=== PATIENT | female | born 1955 | race African-American/Black ===

== ENCOUNTER 2021-10-12 11:20 | Inpatient (IN) ==
[2021-10-12 11:51] LABS: Basophils % 0.4 % (0.0-0.8); Eosinophils # 0.1 10*3/uL (0.0-0.87); Eosinophils % 2.3 % (0.00-10.9); Hematocrit 39.8 VOL% (35.7-47.0); Hemoglobin 13.2 GM/DL (12.0-16.0); Immature Granulocytes % 0.2 %; Immature Granulocytes Absolute 0.01 #; Lymphocytes # 2.1 10*3/uL (1.4-4.0); Lymphocytes % 39.8 % (21.3-54.2); Mean Corpuscular HGB Conc 33.2 GM/DL (32-36); Mean Corpuscular Volume 91.9 FL (87-102); Mean Platelet Volume 10.3 FL (9.6-12.0); Monocytes # 0.5 10*3/uL (0.11-0.8); Monocytes % 8.5 % (1.7-12.7); Neutrophils % 48.8 % (38.7-73.9); Platelet Count 171 T/CUMM (130-400); Red Blood Count 4.33 MC/CUMM (3.8-5.5); Red Cell Distribution Width 14.3 % (9.3-17.3); White Blood Count 5.3 T/CUMM (4-12)
[2021-10-12 12:10] LABS: Alanine Aminotransferase 27 U/L (13-56); Albumin 3.5 G/DL (3.4-5.0); Alkaline Phosphatase 75 U/L (45-117); Aspartate Amino Transferase 19 U/L (0-37); Bilirubin,Total < 0.39 MG/DL (0.20-1.00); Blood Urea Nitrogen 10 MG/DL (7-18); Calcium 8.5 MG/DL (8.5-10.1); Carbon Dioxide 26 MMOL/L (21-32); Chloride 109 MMOL/L (98-107); Glucose 172 MG/DL (74-106); Osmolality,Calculated 283.3 MOS/KG (273-304); Potassium 3.4 MMOL/L (3.5-5.1); Sodium 141 MMOL/L (136-145); Total Protein 6.7 G/DL (6.4-8.2)
[2021-10-12 12:15] LABS: Eosinophils 3 % (0-10); Lymphocytes 38 % (20-55); Total Cells Counted 100
[2021-10-12 12:16] LABS: Platelet Estimate Adequate
[2021-10-12] MEDS ORDERED: ASPIRIN 325 MG TABLET PO STA (12:34)
[2021-10-12] MEDS ORDERED: NITROGLYCERIN SL 0.4 MG TABLET SL PRN (12:34)
[2021-10-12] MEDS ORDERED: ENOXAPARIN 100 MG/ML SYRINGE SUBCUT STA (12:34)
[2021-10-12] MEDS ORDERED: ACETAMINOPHEN 325 MG TABLET PO PRN (14:11)
[2021-10-12] MEDS ORDERED: NICOTINE 21 MG/24 HR PATCH TRANSDERM PRN (14:11)
[2021-10-12] MEDS ORDERED: ONDANSETRON 4 MG/2 ML VIAL IV PRN (14:11)
[2021-10-12] MEDS ORDERED: GLUCAGON 1 MG VIAL IM PRN (14:11)
[2021-10-12] MEDS ORDERED: POTASSIUM CHLORIDE 20 MEQ TABLET PO PRN (14:15)
[2021-10-12] MEDS ORDERED: MAGNESIUM SULF RIDER 2 GM/50 ML PREMIX IV PRN (14:15)
[2021-10-12] MEDS ORDERED: MAGNESIUM SULF RIDER 4 GM/100 ML PREMIX IV PRN (14:15)
[2021-10-12] MEDS ORDERED: DEXTROSE 10% 250 ML BAG IV PRN (14:20)
[2021-10-12] MEDS: INSULIN LISPRO 100 UNIT/ML SUBCUT SCH ×2 (16:52→20:27)
[2021-10-12 17:29] LABS: Alanine Aminotransferase 30 U/L (13-56); Albumin 3.7 G/DL (3.4-5.0); Alkaline Phosphatase 80 U/L (45-117); Aspartate Amino Transferase 46 U/L (0-37); Bilirubin,Total < 0.39 MG/DL (0.20-1.00); Blood Urea Nitrogen 8 MG/DL (7-18); Calcium 8.8 MG/DL (8.5-10.1); Carbon Dioxide 26 MMOL/L (21-32); Chloride 107 MMOL/L (98-107); Glucose 127 MG/DL (74-106); Osmolality,Calculated 278.4 MOS/KG (273-304); Potassium 3.4 MMOL/L (3.5-5.1); Sodium 140 MMOL/L (136-145)
[2021-10-12] MEDS: AMITRIPTYLINE 50 MG TABLET PO SCH (20:26)
[2021-10-12] MEDS: PREGABALIN 75 MG CAPSULE PO SCH (20:26)
[2021-10-12] MEDS: METOPROLOL TARTRATE 100 MG TABLET PO SCH (20:26)
[2021-10-12] MEDS ORDERED: TICAGRELOR 90 MG TABLET PO ONE (20:58)
[2021-10-12] MEDS ORDERED: ROSUVASTATIN 20 MG TABLET PO SCH (21:00)
[2021-10-12] MEDS ORDERED: HEPARIN 5,000 UNIT/1 ML VIAL IV ONE (21:53)
[2021-10-12] MEDS ORDERED: HEPARIN DRIP 25,000 UNITS/500 ML PREMIX IV SCH (22:00)
[2021-10-13] MEDS ORDERED: MORPHINE 2 MG/1 ML SYRINGE IV PRN (00:20)
[2021-10-13] MEDS: NITROGLYCERIN 2% OINT 1 INCH/GM PACK TOP SCH ×4 (00:34→17:48)
[2021-10-13 05:27] LABS: Basophils % 0.2 % (0.0-0.8); Hematocrit 40.9 VOL% (35.7-47.0); Hemoglobin 13.9 GM/DL (12.0-16.0); Immature Granulocytes % 0.6 %; Immature Granulocytes Absolute 0.06 #; Lymphocytes # 1.7 10*3/uL (1.4-4.0); Lymphocytes % 17.2 % (21.3-54.2); Mean Corpuscular Volume 88.5 FL (87-102); Mean Platelet Volume 11.3 FL (9.6-12.0); Monocytes # 0.6 10*3/uL (0.11-0.8); Monocytes % 6.5 % (1.7-12.7); Neutrophils % 75.5 % (38.7-73.9); Platelet Count 217 T/CUMM (130-400); Red Blood Count 4.62 MC/CUMM (3.8-5.5); White Blood Count 9.6 T/CUMM (4-12)
[2021-10-13 05:44] LABS: Osmolality,Calculated 278.7 MOS/KG (273-304); Risk Ratio 3.44; VLDL Cholesterol 16.8 MG/DL
[2021-10-13] MEDS ORDERED: diphenhydrAMINE CAP 25 MG CAPSULE PO ONE (07:55)
[2021-10-13] MEDS ORDERED: DIAZEPAM 5 MG TABLET PO ONE (07:55)
[2021-10-13] MEDS ORDERED: POTASSIUM CHLORIDE 20 MEQ TABLET PO ONE (08:10)
[2021-10-13] MEDS ORDERED: MAGNESIUM SULF RIDER 2 GM/50 ML PREMIX IV ONE (08:11)
[2021-10-13] MEDS ORDERED: NITROGLYCERIN DRIP 50 MG/250 ML BOTTLE IV PRN (08:43)
[2021-10-13] MEDS ORDERED: HEPARIN/NACL 0.9% 2 UNITS/ML 2,000 UNIT/1,000 ML BAG IV ONE (09:00)
[2021-10-13] MEDS ORDERED: ASPIRIN EC 325 MG TABLET PO SCH (09:00)
[2021-10-13] MEDS ORDERED: PANTOPRAZOLE 40 MG TABLET PO SCH (09:00)
[2021-10-13] MEDS ORDERED: HYDROmorphone 1 MG/1 ML SYRINGE ONE ×2 (09:21→09:49)
[2021-10-13] MEDS ORDERED: MIDAZOLAM 2 MG/2 ML VIAL ONE ×2 (09:22→09:50)
[2021-10-13] MEDS ORDERED: NITROGLYCERIN DRIP 50 MG/250 ML BOTTLE IV ONE (09:26)
[2021-10-13] MEDS ORDERED: VERAPAMIL 5 MG/2 ML VIAL ONE (09:26)
[2021-10-13] MEDS ORDERED: ENOXAPARIN 30 MG/0.3 ML SYRINGE ONE (09:41)
[2021-10-13] MEDS: INSULIN LISPRO 100 UNIT/ML SUBCUT SCH ×4 (09:57→20:08)
[2021-10-13] MEDS ORDERED: HEPARIN/NACL 0.9% 2 UNITS/ML 1,000 UNIT/500 ML BAG IV ONE (10:01)
[2021-10-13] MEDS ORDERED: TIROFIBAN 5,000 MCG/100 ML PREMIX IV ONE (10:39)
[2021-10-13] MEDS ORDERED: TICAGRELOR 90 MG TABLET ONE (10:48)
[2021-10-13] MEDS ORDERED: TIROFIBAN 5,000 MCG/100 ML PREMIX IV SCH (11:00)
[2021-10-13] MEDS ORDERED: ENOXAPARIN 40 MG/0.4 ML SYRINGE SUBCUT SCH (13:00)
[2021-10-13] MEDS: SPIRONOLACTONE 25 MG TABLET PO SCH (13:32)
[2021-10-13] MEDS: METOPROLOL TARTRATE 100 MG TABLET PO SCH ×2 (13:32→20:44)
[2021-10-13] MEDS: PREGABALIN 75 MG CAPSULE PO SCH ×3 (13:32→20:44)
[2021-10-13] MEDS: amLODIPine 10 MG TABLET PO SCH (13:33)
[2021-10-13] MEDS: SODIUM CHLORIDE 0.45% 1,000 ML IV SCH ×3 (17:03→23:36)
[2021-10-13] MEDS: AMITRIPTYLINE 50 MG TABLET PO SCH (20:44)
[2021-10-13] MEDS: ROSUVASTATIN 20 MG TABLET PO SCH (20:44)
[2021-10-13] MEDS: TICAGRELOR 90 MG TABLET PO SCH (20:44)
[2021-10-14] MEDS: NITROGLYCERIN 2% OINT 1 INCH/GM PACK TOP SCH ×2 (00:09→06:05)
[2021-10-14 03:52] LABS: Basophils % 0.2 % (0.0-0.8); Eosinophils % 0.3 % (0.00-10.9); Hematocrit 37.8 VOL% (35.7-47.0); Hemoglobin 13.1 GM/DL (12.0-16.0); Immature Granulocytes % 0.2 %; Immature Granulocytes Absolute 0.02 #; Lymphocytes # 2.2 10*3/uL (1.4-4.0); Lymphocytes % 22.3 % (21.3-54.2); Mean Corpuscular HGB Conc 34.7 GM/DL (32-36); Mean Corpuscular Volume 89.4 FL (87-102); Mean Platelet Volume 10.9 FL (9.6-12.0); Monocytes % 10.2 % (1.7-12.7); Neutrophils % 66.8 % (38.7-73.9); Platelet Count 188 T/CUMM (130-400); Red Blood Count 4.23 MC/CUMM (3.8-5.5); Red Cell Distribution Width 14.1 % (9.3-17.3); White Blood Count 9.8 T/CUMM (4-12)
[2021-10-14 04:09] LABS: Calcium 9.1 MG/DL (8.5-10.1); Osmolality,Calculated 278.5 MOS/KG (273-304); Potassium 3.5 MMOL/L (3.5-5.1)
[2021-10-14] MEDS: SODIUM CHLORIDE 0.45% 1,000 ML IV SCH ×2 (07:40→18:53)
[2021-10-14] MEDS: INSULIN LISPRO 100 UNIT/ML SUBCUT SCH ×4 (08:31→20:31)
[2021-10-14] MEDS: METOPROLOL TARTRATE 100 MG TABLET PO SCH ×2 (08:43→20:31)
[2021-10-14] MEDS: TICAGRELOR 90 MG TABLET PO SCH ×2 (08:43→20:29)
[2021-10-14] MEDS: PREGABALIN 75 MG CAPSULE PO SCH ×3 (08:43→20:29)
[2021-10-14] MEDS: amLODIPine 10 MG TABLET PO SCH (08:43)
[2021-10-14] MEDS: ASPIRIN EC 81 MG TABLET PO SCH (08:43)
[2021-10-14] MEDS: SPIRONOLACTONE 25 MG TABLET PO SCH (08:43)
[2021-10-14] MEDS: NICOTINE 21 MG/24 HR PATCH TRANSDERM SCH (14:52)
[2021-10-14] MEDS: oxyCODONE/ACETAMINOPHEN 5-325 MG TABLET PO PRN (18:45)
[2021-10-14] MEDS: ROSUVASTATIN 20 MG TABLET PO SCH (20:29)
[2021-10-14] MEDS ORDERED: NORTRIPTYLINE 25 MG CAPSULE PO SCH (21:00)
[2021-10-15] MEDS: SODIUM CHLORIDE 0.45% 1,000 ML IV SCH (01:18)
[2021-10-15 04:37] LABS: Basophils % 0.2 % (0.0-0.8); Eosinophils # 0.1 10*3/uL (0.0-0.87); Eosinophils % 1.3 % (0.00-10.9); Hematocrit 38.5 VOL% (35.7-47.0); Hemoglobin 12.8 GM/DL (12.0-16.0); Immature Granulocytes % 0.2 %; Immature Granulocytes Absolute 0.02 #; Lymphocytes # 3.1 10*3/uL (1.4-4.0); Mean Corpuscular HGB Conc 33.2 GM/DL (32-36); Mean Corpuscular Volume 90.4 FL (87-102); Monocytes # 0.8 10*3/uL (0.11-0.8); Monocytes % 10.1 % (1.7-12.7); Neutrophils % 50.2 % (38.7-73.9); Platelet Count 159 T/CUMM (130-400); Red Blood Count 4.26 MC/CUMM (3.8-5.5); Red Cell Distribution Width 14.2 % (9.3-17.3); White Blood Count 8.2 T/CUMM (4-12)
[2021-10-15 04:58] LABS: Calcium 8.9 MG/DL (8.5-10.1); Osmolality,Calculated 285.3 MOS/KG (273-304)
[2021-10-15] MEDS: INSULIN LISPRO 100 UNIT/ML SUBCUT SCH (07:14)
[2021-10-15] MEDS ORDERED: POTASSIUM CHLORIDE 20 MEQ TABLET PO ONE (09:07)
[2021-10-15] MEDS: amLODIPine 10 MG TABLET PO SCH (09:09)
[2021-10-15] MEDS ORDERED: POTASSIUM CHLORIDE 20 MEQ TABLET PO SCH (10:00)
[2021-10-15] MEDS: TICAGRELOR 90 MG TABLET PO SCH (10:15)
[2021-10-15] MEDS: PREGABALIN 75 MG CAPSULE PO SCH (10:16)
[2021-10-15] MEDS: ASPIRIN EC 81 MG TABLET PO SCH (10:16)
[2021-10-15] MEDS: METOPROLOL TARTRATE 100 MG TABLET PO SCH (10:16)
[2021-10-15] MEDS: SPIRONOLACTONE 25 MG TABLET PO SCH (10:18)
[2021-10-15] MEDS: NICOTINE 21 MG/24 HR PATCH TRANSDERM SCH (10:18)
[2021-10-15] MEDS: oxyCODONE/ACETAMINOPHEN 5-325 MG TABLET PO PRN (10:29)
[2021-10-15 11:14] VITALS: BP 99/68
== END 2021-10-15 13:11 | disposition home or self-care (01) | DRG 174 ==
LOC: N.ED 11:20 → N.TELEN 11:20 → SUATTDRO 10-13 09:38
PROVIDERS: ADMIT Internal Medicine; ATTEND Hospitalist
PROC: CLCCHCL (ICD-10-PCS; 2021-10-13 09:45)

== ENCOUNTER 2021-10-30 12:40 | Inpatient (IN) ==
[2021-10-30] MEDS ORDERED: ASPIRIN 325 MG TABLET PO STA (13:07)
[2021-10-30] MEDS ORDERED: MORPHINE 2 MG/1 ML SYRINGE IV STA (13:17)
[2021-10-30] MEDS ORDERED: FUROSEMIDE 40 MG/4 ML VIAL IV STA (13:17)
[2021-10-30] MEDS ORDERED: NITROGLYCERIN 2% OINT 1 INCH/GM PACK TOP STA (13:18)
[2021-10-30] MEDS ORDERED: NITROGLYCERIN SL 0.4 MG TABLET SL PRN (13:18)
[2021-10-30 13:55] LABS: Basophils % 0.1 % (0.0-0.8); Eosinophils # 0.1 10*3/uL (0.0-0.87); Eosinophils % 0.8 % (0.00-10.9); Hematocrit 34.9 VOL% (35.7-47.0); Hemoglobin 11.6 GM/DL (12.0-16.0); Immature Granulocytes % 0.3 %; Immature Granulocytes Absolute 0.03 #; Lymphocytes # 1.5 10*3/uL (1.4-4.0); Lymphocytes % 16.2 % (21.3-54.2); Mean Corpuscular HGB Conc 33.2 GM/DL (32-36); Mean Corpuscular Volume 92.1 FL (87-102); Mean Platelet Volume 10.1 FL (9.6-12.0); Monocytes # 0.5 10*3/uL (0.11-0.8); Monocytes % 5.5 % (1.7-12.7); Neutrophils % 77.1 % (38.7-73.9); Platelet Count 320 T/CUMM (130-400); Red Blood Count 3.79 MC/CUMM (3.8-5.5); Red Cell Distribution Width 13.7 % (9.3-17.3); White Blood Count 8.9 T/CUMM (4-12)
[2021-10-30 14:08] LABS: Albumin 3.5 G/DL (3.4-5.0); Bilirubin,Total 0.5 MG/DL (0.20-1.00); Calcium 8.7 MG/DL (8.5-10.1); Total Protein 6.9 G/DL (6.4-8.2)
[2021-10-30] MEDS ORDERED: DOCUSATE SODIUM 100 MG CAPSULE PO PRN (15:22)
[2021-10-30] MEDS ORDERED: hydrALAZINE 20 MG/1 ML VIAL IV PRN (15:22)
[2021-10-30] MEDS ORDERED: SIMETHICONE CHEW 125 MG TABLET PO PRN (15:22)
[2021-10-30] MEDS ORDERED: LACTULOSE 20 GM/30 ML UDCUP PO PRN (15:22)
[2021-10-30] MEDS ORDERED: GLUCAGON 1 MG VIAL IM PRN (15:22)
[2021-10-30] MEDS ORDERED: ONDANSETRON 4 MG/2 ML VIAL IV PRN (15:22)
[2021-10-30] MEDS ORDERED: DEXTROSE 10% 250 ML BAG IV PRN (15:32)
[2021-10-30] MEDS ORDERED: MAGNESIUM SULF RIDER 4 GM/100 ML PREMIX IV PRN (16:16)
[2021-10-30] MEDS ORDERED: MAGNESIUM SULF RIDER 2 GM/50 ML PREMIX IV PRN (16:16)
[2021-10-30] MEDS: ACETAMINOPHEN 325 MG TABLET PO PRN (17:54)
[2021-10-30] MEDS: ALBUTEROL/IPRATROPIUM 3 ML NEB RESP TX SCH ×2 (18:50→23:47)
[2021-10-30] MEDS ORDERED: FUROSEMIDE 40 MG/4 ML VIAL IV SCH (21:00)
[2021-10-30] MEDS: PREGABALIN 75 MG CAPSULE PO SCH (21:42)
[2021-10-30] MEDS: TICAGRELOR 90 MG TABLET PO SCH (21:42)
[2021-10-30] MEDS: ENOXAPARIN 40 MG/0.4 ML SYRINGE SUBCUT SCH (21:42)
[2021-10-30] MEDS: METOPROLOL TARTRATE 100 MG TABLET PO SCH (21:42)
[2021-10-30] MEDS: oxyCODONE/ACETAMINOPHEN 5-325 MG TABLET PO PRN (21:43)
[2021-10-30] MEDS: NORTRIPTYLINE 25 MG CAPSULE PO SCH (21:43)
[2021-10-30] MEDS: ROSUVASTATIN 20 MG TABLET PO SCH (21:44)
[2021-10-31] MEDS: ALBUTEROL/IPRATROPIUM 3 ML NEB RESP TX SCH ×6 (03:50→23:36)
[2021-10-31 05:22] LABS: Basophils % 0.4 % (0.0-0.8); Eosinophils # 0.1 10*3/uL (0.0-0.87); Eosinophils % 1.3 % (0.00-10.9); Hematocrit 32.1 VOL% (35.7-47.0); Hemoglobin 10.7 GM/DL (12.0-16.0); Immature Granulocytes % 0.3 %; Immature Granulocytes Absolute 0.02 #; Lymphocytes # 2.3 10*3/uL (1.4-4.0); Lymphocytes % 34.2 % (21.3-54.2); Mean Corpuscular HGB Conc 33.3 GM/DL (32-36); Mean Corpuscular Volume 91.2 FL (87-102); Mean Platelet Volume 10.4 FL (9.6-12.0); Monocytes # 0.6 10*3/uL (0.11-0.8); Neutrophils % 54.8 % (38.7-73.9); Platelet Count 252 T/CUMM (130-400); Red Blood Count 3.52 MC/CUMM (3.8-5.5); Red Cell Distribution Width 13.9 % (9.3-17.3); White Blood Count 6.7 T/CUMM (4-12)
[2021-10-31 05:42] LABS: Alanine Aminotransferase 20 U/L (13-56); Albumin 3.1 G/DL (3.4-5.0); Alkaline Phosphatase 74 U/L (45-117); Aspartate Amino Transferase 13 U/L (0-37); Bilirubin,Total < 0.39 MG/DL (0.20-1.00); Blood Urea Nitrogen 14 MG/DL (7-18); Calcium 8.9 MG/DL (8.5-10.1); Carbon Dioxide 24 MMOL/L (21-32); Chloride 111 MMOL/L (98-107); Glucose 96 MG/DL (74-106); Osmolality,Calculated 283.1 MOS/KG (273-304); Potassium 3.6 MMOL/L (3.5-5.1); Sodium 142 MMOL/L (136-145); Total Protein 6.8 G/DL (6.4-8.2)
[2021-10-31] MEDS: FUROSEMIDE 40 MG/4 ML VIAL IV SCH ×2 (06:43→18:44)
[2021-10-31] MEDS: SPIRONOLACTONE 25 MG TABLET PO SCH (09:23)
[2021-10-31] MEDS: ESCITALOPRAM 10 MG TABLET PO SCH (09:23)
[2021-10-31] MEDS: TICAGRELOR 90 MG TABLET PO SCH ×2 (09:23→21:28)
[2021-10-31] MEDS: ASPIRIN EC 81 MG TABLET PO SCH (09:23)
[2021-10-31] MEDS: LOSARTAN 25 MG TABLET PO SCH (09:23)
[2021-10-31] MEDS: PANTOPRAZOLE 40 MG TABLET PO SCH (09:23)
[2021-10-31] MEDS: PREGABALIN 75 MG CAPSULE PO SCH ×3 (09:24→21:29)
[2021-10-31] MEDS: METOPROLOL TARTRATE 100 MG TABLET PO SCH ×2 (09:24→21:29)
[2021-10-31] MEDS: NICOTINE 21 MG/24 HR PATCH TRANSDERM SCH (09:24)
[2021-10-31] MEDS: ACETAMINOPHEN 325 MG TABLET PO PRN (18:49)
[2021-10-31] MEDS: ENOXAPARIN 40 MG/0.4 ML SYRINGE SUBCUT SCH (21:28)
[2021-10-31] MEDS: oxyCODONE/ACETAMINOPHEN 5-325 MG TABLET PO PRN (21:29)
[2021-10-31] MEDS: ROSUVASTATIN 20 MG TABLET PO SCH (21:29)
[2021-10-31] MEDS: NORTRIPTYLINE 25 MG CAPSULE PO SCH (22:36)
[2021-11-01] MEDS: ALBUTEROL/IPRATROPIUM 3 ML NEB RESP TX SCH ×5 (03:50→20:06)
[2021-11-01 04:45] LABS: Basophils % 0.3 % (0.0-0.8); Eosinophils # 0.1 10*3/uL (0.0-0.87); Eosinophils % 1.7 % (0.00-10.9); Hematocrit 33.8 VOL% (35.7-47.0); Immature Granulocytes % 0.4 %; Immature Granulocytes Absolute 0.03 #; Lymphocytes # 2.5 10*3/uL (1.4-4.0); Mean Corpuscular HGB Conc 32.5 GM/DL (32-36); Mean Corpuscular Volume 92.6 FL (87-102); Mean Platelet Volume 10.4 FL (9.6-12.0); Monocytes # 0.6 10*3/uL (0.11-0.8); Monocytes % 7.5 % (1.7-12.7); Neutrophils % 58.1 % (38.7-73.9); Platelet Count 291 T/CUMM (130-400); Red Blood Count 3.65 MC/CUMM (3.8-5.5); Red Cell Distribution Width 13.9 % (9.3-17.3); White Blood Count 7.7 T/CUMM (4-12)
[2021-11-01 05:18] LABS: Calcium 8.9 MG/DL (8.5-10.1); Osmolality,Calculated 287.3 MOS/KG (273-304); Potassium 3.5 MMOL/L (3.5-5.1)
[2021-11-01] MEDS: FUROSEMIDE 40 MG/4 ML VIAL IV SCH (06:34)
[2021-11-01] MEDS: METOPROLOL TARTRATE 100 MG TABLET PO SCH ×2 (10:14→22:05)
[2021-11-01] MEDS: ESCITALOPRAM 10 MG TABLET PO SCH (10:14)
[2021-11-01] MEDS: ASPIRIN EC 81 MG TABLET PO SCH (10:14)
[2021-11-01] MEDS: TICAGRELOR 90 MG TABLET PO SCH (10:14)
[2021-11-01] MEDS: SPIRONOLACTONE 25 MG TABLET PO SCH (10:15)
[2021-11-01] MEDS: PREGABALIN 75 MG CAPSULE PO SCH ×3 (10:15→22:06)
[2021-11-01] MEDS: PANTOPRAZOLE 40 MG TABLET PO SCH (10:15)
[2021-11-01] MEDS: LOSARTAN 25 MG TABLET PO SCH (10:15)
[2021-11-01] MEDS: NICOTINE 21 MG/24 HR PATCH TRANSDERM SCH (10:15)
[2021-11-01] MEDS ORDERED: SODIUM CHLORIDE 0.9% 1,000 ML IV SCH (11:00)
[2021-11-01] MEDS ORDERED: CLOPIDOGREL 75 MG TABLET PO ONE (21:00)
[2021-11-01] MEDS: NORTRIPTYLINE 25 MG CAPSULE PO SCH (22:05)
[2021-11-01] MEDS: ROSUVASTATIN 20 MG TABLET PO SCH (22:05)
[2021-11-01] MEDS: ENOXAPARIN 40 MG/0.4 ML SYRINGE SUBCUT SCH (22:06)
[2021-11-01] MEDS: oxyCODONE/ACETAMINOPHEN 5-325 MG TABLET PO PRN (22:20)
[2021-11-02] MEDS: ALBUTEROL/IPRATROPIUM 3 ML NEB RESP TX SCH ×4 (01:01→10:33)
[2021-11-02 04:37] LABS: Basophils % 0.4 % (0.0-0.8); Eosinophils # 0.2 10*3/uL (0.0-0.87); Eosinophils % 2.7 % (0.00-10.9); Hematocrit 33.2 VOL% (35.7-47.0); Hemoglobin 10.5 GM/DL (12.0-16.0); Immature Granulocytes % 0.1 %; Immature Granulocytes Absolute 0.01 #; Lymphocytes # 2.4 10*3/uL (1.4-4.0); Lymphocytes % 32.6 % (21.3-54.2); Mean Corpuscular HGB Conc 31.6 GM/DL (32-36); Mean Platelet Volume 10.2 FL (9.6-12.0); Monocytes # 0.5 10*3/uL (0.11-0.8); Monocytes % 7.2 % (1.7-12.7); Platelet Count 282 T/CUMM (130-400); Red Blood Count 3.57 MC/CUMM (3.8-5.5); White Blood Count 7.5 T/CUMM (4-12)
[2021-11-02 05:02] LABS: Calcium 8.8 MG/DL (8.5-10.1); Osmolality,Calculated 285.3 MOS/KG (273-304); Potassium 3.3 MMOL/L (3.5-5.1)
[2021-11-02 08:10] VITALS: BP 106/86
[2021-11-02] MEDS ORDERED: CLOPIDOGREL 75 MG TABLET PO SCH (09:00)
[2021-11-02] MEDS: METOPROLOL TARTRATE 100 MG TABLET PO SCH (09:49)
[2021-11-02] MEDS: PANTOPRAZOLE 40 MG TABLET PO SCH (09:49)
[2021-11-02] MEDS: ESCITALOPRAM 10 MG TABLET PO SCH (09:49)
[2021-11-02] MEDS: PREGABALIN 75 MG CAPSULE PO SCH (09:50)
[2021-11-02] MEDS: ASPIRIN EC 81 MG TABLET PO SCH (09:50)
[2021-11-02] MEDS: NICOTINE 21 MG/24 HR PATCH TRANSDERM SCH (09:51)
[2021-11-02] MEDS ORDERED: POTASSIUM CHLORIDE 20 MEQ TABLET PO ONE (10:04)
== END 2021-11-02 13:03 | disposition home or self-care (01) | DRG 190 ==
LOC: N.ED 12:40 → N.EDINP 12:40 → SUATTDRO 15:22 → N.TELEN 16:09 → SUATTDRO 11-01 11:53
PROVIDERS: ADMIT Internal Medicine; ATTEND Emergency Medicine

== ENCOUNTER 2021-11-25 08:00 | Inpatient (IN) ==
[2021-11-25 08:33] LABS: Basophils % 0.4 % (0.0-0.8); Eosinophils # 0.2 10*3/uL (0.0-0.87); Eosinophils % 2.7 % (0.00-10.9); Hematocrit 34.3 VOL% (35.7-47.0); Hemoglobin 10.4 GM/DL (12.0-16.0); Immature Granulocytes % 0.3 %; Immature Granulocytes Absolute 0.02 #; Lymphocytes # 2.2 10*3/uL (1.4-4.0); Lymphocytes % 32.7 % (21.3-54.2); Mean Corpuscular HGB Conc 30.3 GM/DL (32-36); Mean Platelet Volume 9.8 FL (9.6-12.0); Monocytes # 0.4 10*3/uL (0.11-0.8); Monocytes % 6.2 % (1.7-12.7); Neutrophils % 57.7 % (38.7-73.9); Platelet Count 214 T/CUMM (130-400); White Blood Count 6.8 T/CUMM (4-12)
[2021-11-25] MEDS ORDERED: ALBUTEROL/IPRATROPIUM 3 ML NEB RESP TX STA (08:39)
[2021-11-25 08:56] LABS: Alanine Aminotransferase 56 U/L (13-56); Albumin 3.2 G/DL (3.4-5.0); Alkaline Phosphatase 104 U/L (45-117); Aspartate Amino Transferase 30 U/L (0-37); Bilirubin,Total < 0.39 MG/DL (0.20-1.00); Blood Urea Nitrogen 21 MG/DL (7-18); Calcium 8.9 MG/DL (8.5-10.1); Carbon Dioxide 26 MMOL/L (21-32); Chloride 110 MMOL/L (98-107); Glucose 165 MG/DL (74-106); Osmolality,Calculated 287.3 MOS/KG (273-304); Potassium 4.5 MMOL/L (3.5-5.1); Sodium 141 MMOL/L (136-145); Total Protein 7.1 G/DL (6.4-8.2)
[2021-11-25 09:02] LABS: Eosinophils 3 % (0-10); Lymphocytes 40 % (20-55); Platelet Estimate Adequate; Total Cells Counted 100
[2021-11-25 09:08] LABS: Arterial Base Excess iSTAT -1 MMOL/L (-2.5-2.5); Arterial Bicarbonate iSTAT 24.5 MMOL/L (20-26); Arterial O2 Saturation iSTAT 92 % (95-100); Arterial PCO2 iSTAT 41 MM HG (35-48); Arterial PO2 iSTAT 66 MM HG (80-95); Arterial Total CO2 iSTAT 26 MMO/L (23-27); Arterial pH iSTAT 7.382 (7.35-7.45)
[2021-11-25 09:09] LABS: INR 0.9; PT Patient Result 10.3 SECS (10.5-12.0); Partial Thromboplastin Time 23.9 SECS (23.7-32.9)
[2021-11-25] MEDS ORDERED: ASPIRIN EC 325 MG TABLET PO STA (10:54)
[2021-11-25] MEDS ORDERED: GLUCAGON 1 MG VIAL IM PRN (11:30)
[2021-11-25] MEDS ORDERED: ACETAMINOPHEN 325 MG TABLET PO PRN (11:30)
[2021-11-25] MEDS ORDERED: ONDANSETRON 4 MG/2 ML VIAL IV PRN (11:30)
[2021-11-25] MEDS ORDERED: ALUMINUM/MAGNES/SIMETH MAX STR 30 ML UDCUP PO PRN (11:30)
[2021-11-25] MEDS ORDERED: hydrALAZINE 20 MG/1 ML VIAL IV PRN (11:30)
[2021-11-25] MEDS ORDERED: DOCUSATE SODIUM 100 MG CAPSULE PO PRN (11:30)
[2021-11-25] MEDS ORDERED: ALBUTEROL/IPRATROPIUM 3 ML NEB RESP TX PRN (11:30)
[2021-11-25] MEDS ORDERED: FUROSEMIDE 40 MG/4 ML VIAL IV SCH (11:35)
[2021-11-25] MEDS ORDERED: DEXTROSE 10% 250 ML BAG IV PRN (12:01)
[2021-11-25] MEDS ORDERED: NITROGLYCERIN SL 0.4 MG TABLET SL PRN (12:58)
[2021-11-25] MEDS: ENOXAPARIN 40 MG/0.4 ML SYRINGE SUBCUT SCH (13:42)
[2021-11-25] MEDS ORDERED: LOSARTAN 25 MG TABLET PO SCH (14:30)
[2021-11-25] MEDS: INSULIN LISPRO 100 UNIT/ML SUBCUT SCH ×3 (15:10→21:08)
[2021-11-25] MEDS: SPIRONOLACTONE 25 MG TABLET PO SCH (15:12)
[2021-11-25] MEDS: PREGABALIN 75 MG CAPSULE PO SCH ×2 (15:12→21:08)
[2021-11-25] MEDS: FUROSEMIDE 40 MG/4 ML VIAL IV SCH (16:41)
[2021-11-25] MEDS: ROSUVASTATIN 20 MG TABLET PO SCH (21:07)
[2021-11-25] MEDS: METOPROLOL TARTRATE 100 MG TABLET PO SCH (21:07)
[2021-11-25] MEDS: NORTRIPTYLINE 25 MG CAPSULE PO SCH (21:07)
[2021-11-26 04:48] LABS: Basophils % 0.3 % (0.0-0.8); Eosinophils # 0.2 10*3/uL (0.0-0.87); Eosinophils % 2.5 % (0.00-10.9); Hematocrit 33.6 VOL% (35.7-47.0); Hemoglobin 10.8 GM/DL (12.0-16.0); Immature Granulocytes % 0.2 %; Immature Granulocytes Absolute 0.01 #; Lymphocytes # 1.6 10*3/uL (1.4-4.0); Lymphocytes % 27.5 % (21.3-54.2); Mean Corpuscular HGB Conc 32.1 GM/DL (32-36); Mean Corpuscular Volume 93.6 FL (87-102); Mean Platelet Volume 9.9 FL (9.6-12.0); Monocytes # 0.5 10*3/uL (0.11-0.8); Monocytes % 7.6 % (1.7-12.7); Neutrophils % 61.9 % (38.7-73.9); Platelet Count 211 T/CUMM (130-400); Red Blood Count 3.59 MC/CUMM (3.8-5.5); Red Cell Distribution Width 15.6 % (9.3-17.3)
[2021-11-26 05:17] LABS: Albumin 3.4 G/DL (3.4-5.0); Bilirubin,Total 0.5 MG/DL (0.20-1.00); Calcium 9.2 MG/DL (8.5-10.1); Osmolality,Calculated 278.7 MOS/KG (273-304); Potassium 3.7 MMOL/L (3.5-5.1); Thyroid Stimulating Hormone 0.472 uIU/ml (0.358-3.74); Total Protein 7.2 G/DL (6.4-8.2)
[2021-11-26] MEDS: INSULIN LISPRO 100 UNIT/ML SUBCUT SCH ×4 (08:54→21:13)
[2021-11-26] MEDS: FUROSEMIDE 40 MG/4 ML VIAL IV SCH ×2 (08:55→15:42)
[2021-11-26] MEDS: ASPIRIN EC 81 MG TABLET PO SCH (08:55)
[2021-11-26] MEDS: PREGABALIN 75 MG CAPSULE PO SCH ×3 (08:56→21:12)
[2021-11-26] MEDS: CLOPIDOGREL 75 MG TABLET PO SCH (08:56)
[2021-11-26] MEDS: SPIRONOLACTONE 25 MG TABLET PO SCH (08:56)
[2021-11-26] MEDS: METOPROLOL TARTRATE 100 MG TABLET PO SCH ×2 (08:56→21:12)
[2021-11-26] MEDS: ESCITALOPRAM 10 MG TABLET PO SCH (08:56)
[2021-11-26] MEDS: PANTOPRAZOLE 40 MG TABLET PO SCH (08:56)
[2021-11-26] MEDS: VALSARTAN 80 MG TABLET PO SCH (09:01)
[2021-11-26] MEDS: ENOXAPARIN 40 MG/0.4 ML SYRINGE SUBCUT SCH (13:29)
[2021-11-26] MEDS: oxyCODONE/ACETAMINOPHEN 5-325 MG TABLET PO PRN (15:57)
[2021-11-26] MEDS: ROSUVASTATIN 20 MG TABLET PO SCH (21:12)
[2021-11-26] MEDS: NORTRIPTYLINE 25 MG CAPSULE PO SCH (21:13)
[2021-11-27 05:23] LABS: Basophils % 0.3 % (0.0-0.8); Eosinophils # 0.2 10*3/uL (0.0-0.87); Eosinophils % 2.4 % (0.00-10.9); Hematocrit 35.1 VOL% (35.7-47.0); Hemoglobin 11.1 GM/DL (12.0-16.0); Immature Granulocytes % 0.6 %; Immature Granulocytes Absolute 0.04 #; Lymphocytes # 1.8 10*3/uL (1.4-4.0); Mean Corpuscular HGB Conc 31.6 GM/DL (32-36); Mean Corpuscular Volume 95.6 FL (87-102); Mean Platelet Volume 9.9 FL (9.6-12.0); Monocytes # 0.7 10*3/uL (0.11-0.8); Monocytes % 10.4 % (1.7-12.7); Neutrophils % 57.3 % (38.7-73.9); Platelet Count 238 T/CUMM (130-400); Red Blood Count 3.67 MC/CUMM (3.8-5.5); Red Cell Distribution Width 15.6 % (9.3-17.3); White Blood Count 6.2 T/CUMM (4-12)
[2021-11-27 05:33] LABS: Calcium 8.8 MG/DL (8.5-10.1); Osmolality,Calculated 288.4 MOS/KG (273-304); Potassium 3.4 MMOL/L (3.5-5.1)
[2021-11-27 06:41] LABS: Eosinophils 1 % (0-10); Lymphocytes 24 % (20-55); Total Cells Counted 100
[2021-11-27 06:42] LABS: Platelet Estimate Normal
[2021-11-27 06:43] LABS: Polychromasia Slight; Target Cells Slight
[2021-11-27] MEDS ORDERED: POTASSIUM CHLORIDE 20 MEQ TABLET PO ONE ×2 (08:22→11:21)
[2021-11-27] MEDS: PANTOPRAZOLE 40 MG TABLET PO SCH (08:28)
[2021-11-27] MEDS: CLOPIDOGREL 75 MG TABLET PO SCH (08:28)
[2021-11-27] MEDS: PREGABALIN 75 MG CAPSULE PO SCH ×3 (08:28→21:41)
[2021-11-27] MEDS: ESCITALOPRAM 10 MG TABLET PO SCH (08:28)
[2021-11-27] MEDS: VALSARTAN 80 MG TABLET PO SCH (08:28)
[2021-11-27] MEDS: SPIRONOLACTONE 50 MG TABLET PO SCH (08:29)
[2021-11-27] MEDS: METOPROLOL TARTRATE 100 MG TABLET PO SCH ×2 (08:30→21:22)
[2021-11-27] MEDS: ASPIRIN EC 81 MG TABLET PO SCH (08:30)
[2021-11-27] MEDS: INSULIN LISPRO 100 UNIT/ML SUBCUT SCH ×4 (08:32→21:22)
[2021-11-27] MEDS: FUROSEMIDE 40 MG/4 ML VIAL IV SCH (10:23)
[2021-11-27] MEDS: ENOXAPARIN 40 MG/0.4 ML SYRINGE SUBCUT SCH (13:43)
[2021-11-27] MEDS: oxyCODONE/ACETAMINOPHEN 5-325 MG TABLET PO PRN (13:56)
[2021-11-27] MEDS: ROSUVASTATIN 20 MG TABLET PO SCH (21:20)
[2021-11-27] MEDS: NORTRIPTYLINE 25 MG CAPSULE PO SCH (21:22)
[2021-11-28 05:25] LABS: Basophils % 0.5 % (0.0-0.8); Eosinophils # 0.2 10*3/uL (0.0-0.87); Eosinophils % 3.1 % (0.00-10.9); Hematocrit 35.3 VOL% (35.7-47.0); Immature Granulocytes % 0.5 %; Immature Granulocytes Absolute 0.03 #; Lymphocytes # 1.9 10*3/uL (1.4-4.0); Lymphocytes % 32.6 % (21.3-54.2); Mean Corpuscular HGB Conc 31.2 GM/DL (32-36); Mean Corpuscular Volume 96.2 FL (87-102); Mean Platelet Volume 9.8 FL (9.6-12.0); Monocytes # 0.7 10*3/uL (0.11-0.8); Monocytes % 12.2 % (1.7-12.7); Neutrophils % 51.1 % (38.7-73.9); Platelet Count 232 T/CUMM (130-400); Red Blood Count 3.67 MC/CUMM (3.8-5.5); Red Cell Distribution Width 15.7 % (9.3-17.3); White Blood Count 5.8 T/CUMM (4-12)
[2021-11-28 05:49] LABS: Calcium 8.7 MG/DL (8.5-10.1); Osmolality,Calculated 286.5 MOS/KG (273-304); Potassium 3.8 MMOL/L (3.5-5.1)
[2021-11-28 07:19] LABS: Eosinophils 4 % (0-10); Lymphocytes 37 % (20-55); Total Cells Counted 100
[2021-11-28] MEDS: INSULIN LISPRO 100 UNIT/ML SUBCUT SCH ×3 (07:19→15:39)
[2021-11-28 07:23] LABS: Ovalocytes Slight
[2021-11-28 07:26] LABS: Anisocytosis Slight
[2021-11-28 07:27] LABS: Platelet Estimate Normal
[2021-11-28] MEDS: ASPIRIN EC 81 MG TABLET PO SCH (09:58)
[2021-11-28] MEDS: SPIRONOLACTONE 50 MG TABLET PO SCH (09:58)
[2021-11-28] MEDS: CLOPIDOGREL 75 MG TABLET PO SCH (09:58)
[2021-11-28] MEDS: PREGABALIN 75 MG CAPSULE PO SCH ×2 (09:59→15:16)
[2021-11-28] MEDS: PANTOPRAZOLE 40 MG TABLET PO SCH (09:59)
[2021-11-28] MEDS: METOPROLOL TARTRATE 100 MG TABLET PO SCH (09:59)
[2021-11-28] MEDS: ESCITALOPRAM 10 MG TABLET PO SCH (10:00)
[2021-11-28] MEDS: VALSARTAN 80 MG TABLET PO SCH (10:00)
[2021-11-28] MEDS: oxyCODONE/ACETAMINOPHEN 5-325 MG TABLET PO PRN (12:52)
[2021-11-28] MEDS: ENOXAPARIN 40 MG/0.4 ML SYRINGE SUBCUT SCH (12:53)
[2021-11-28 16:59] VITALS: BP 96/55
== END 2021-11-28 17:05 | disposition home or self-care (01) | DRG 194 ==
LOC: N.ED 08:00 → N.EDINP 08:00 → N.TELEN 14:02 → SUATTDRO 11-26 09:07
PROVIDERS: ADMIT Internal Medicine; ATTEND Emergency Medicine